=== PATIENT | female | born 1960 | race Caucasian/White ===

== ENCOUNTER 2022-12-29 09:39 | Outpatient (CLI) | payer BC, SELFPAY ==
--- NOTE | ~2022-12-29 | MM_ITS ---
EXAMINATION: MM screening blanca BI w yuli HISTORY: Screening mammogram TECHNIQUE: Craniocaudal and mediolateral oblique 3-D tomosynthesis images were obtained and synthetic 2-D images were generated. CAD analysis was submitted and interpreted. COMPARISON: No prior mammogram is available for comparison at this institution. BREAST PARENCHYMAL COMPOSITION: The breasts are heterogeneously dense, which may obscure small masses . FINDINGS: There is no evidence of suspicious mass, calcification, or architectural distortion to sugg est malignancy in either breast. There has been no suspicious interval change. IMPRESSION: 1. No mammographic evidence of malignancy. 2. Recommend routine screening mammography in one year. BI-RADS Category 1: Negative Reviewed, dictated and finalized at location A. [facility] REG[facility]
== END 2022-12-29 09:40 | disposition home or self-care (01) ==
DX: Z12.31 Encounter for screening mammogram for malignant neoplasm of breast (principal)
CPT/HCPCS: 77063; 77067

== ENCOUNTER 2023-01-01 12:42 | Outpatient (CLI) | payer BC, SELFPAY ==
--- NOTE | ~2023-01-01 | DEXA_ITS ---
Bone Density Report Name: SHARI ALMEIDA Age: 62 Sex: Female Ethnicity: White Date of : 1960 Indication: postmenopausal; screening for osteoporosis; height loss; Referring Provider: ALVAREZ BRADFORD Study: Bone densitometry was performed. Exam Date: January 01, 2023 Accession number: [id number] Bone Density: Region BMD T-score Z-score Classification AP Spine(L1, L2, L3) 0.839 -1.6 0.1 Osteopenia Femoral Neck (Left) 0.711 -1.2 0.2 Osteopenia Total Hip (Left) 0.786 -1.3 -0.1 Osteopenia Femoral Neck (Right) 0.675 -1.6 -0.1 Osteopenia Total Hip (Right) 0.786 -1.3 -0.1 Osteopenia Total Hip Mean 0.786 -1.3 -0.1 Osteopenia World Health Organization criteria for BMD impression classify patients as: Normal (T-score at or above -1.0), Osteopenia (T-score between -1.0 and -2.5), or Osteoporosis (T-score at or below -2.5). 10-year Fracture Risk: FRAX not reported because: Treated for osteoporosis Clinical Information Provided by Patient: Is being treated for osteoporosis Has used the following medications: Prolia (i.e. denosumab), Vitamin D, Calcium Patient maximum height was 64 Menopause Age: 38 Does not regularly consume dairy products Drinks caffeinated beverages Onset of menses at age 8 Number of children 2 Impression: The patient has low bone mass, based on the Total Spine T-score. Discussion: It is important to ask patients whether they are taking their medications and to encourage continued and appropriate compliance with their osteoporosis therapies to reduce fracture risk. It is also important to review their risk factors and encourage appropriate calcium and vitamin D intakes, exercise, fall prevention and other lifestyle measures. Follow-Up: Consider a repeat BMD and Vertebral Fracture Assessment (VFA) exam in 2 years or sooner if medically necessary, to reassess this patient's status. Reported by: JAMES on 01/01/2023 1:16:00 PM. Reviewed, dictated and finalized at location ASunil HUGHES
== END 2023-01-01 12:43 | disposition home or self-care (01) ==
LOC: ANHIMG 12:52
PROVIDERS: PCP Internal Medicine; Visit Provider Internal Medicine
DX: Z78.0 Asymptomatic menopausal state (principal); M85.88 Other specified disorders of bone density and structure, other site; M85.852 Other specified disorders of bone density and structure, left thigh; M85.851 Other specified disorders of bone density and structure, right thigh
CPT/HCPCS: 77080

== ENCOUNTER 2024-01-17 08:06 | Outpatient (CLI) | payer MEDICARE, SELFPAY ==
--- NOTE | ~2024-01-17 | MM_ITS ---
EXAMINATION: MM screening blanca BI w yuli HISTORY: Screening mammogram TECHNIQUE: Craniocaudal and mediolateral oblique 3-D tomosynthesis images were obtained and synthetic 2-D images were generated. CAD analysis was submitted and interpreted. COMPARISON: December 29, 2022 bilateral screening mammogram BREAST PARENCHYMAL COMPOSITION: The breasts are heterogeneously dense, which may obscure small masses . FINDINGS: There is no evidence of suspicious mass, calcification, or architectural distortion to sugg est malignancy in either breast. There has been no suspicious interval change. IMPRESSION: 1. No mammographic evidence of malignancy. 2. Recommend routine screening mammography in one year. BI-RADS Category 1: Negative Reviewed, dictated and finalized at location A.
== END 2024-01-17 08:07 | disposition home or self-care (01) ==
LOC: ANHIMG 08:10
DX: Z12.31 Encounter for screening mammogram for malignant neoplasm of breast (principal)
CPT/HCPCS: 77063; 77067

== ENCOUNTER 2025-01-23 09:44 | Outpatient (CLI) | payer MEDICARE, SELFPAY ==
--- NOTE | ~2025-01-23 | MM_ITS ---
EXAMINATION: MM screening blanca BI w yuli HISTORY: Screening TECHNIQUE: Craniocaudal and mediolateral oblique 3-D tomosynthesis images were obtained and synthetic 2-D images were generated. CAD analysis was submitted and interpreted. COMPARISON: Comparison to multiple prior studies sequentially, with oldest reviewed study dated 12/29. BREAST PARENCHYMAL COMPOSITION: Not dense: There are scattered areas of fibroglandular density. FINDINGS: There is no evidence of suspicious mass, calcification, or architectural distortion to sugg est malignancy in either breast. There has been no suspicious interval change. IMPRESSION: 1. No mammographic evidence of malignancy. 2. Recommend routine screening mammography in one year. BI-RADS Category 1: Negative Reviewed, dictated and finalized at location B.
--- OUTSIDE RECORDS SUMMARY | 2025-01-23 10:50 | XMS_ITS | Clinical Summary ---
Author Organization [facility] Address [address] [place] [address] Care Team Providers Care Dyehouse Worker Name Role Phone Dalton Page MD Primary Care Provider [phone] Mayte Lentz APRN-VOCATIONAL ED INSTRUCTOR Unavailable Unavailable Source Comments [facility],non-owned Affiliates and Associated Physician Practices is amultiple site organization consisting of ambulatory clinics and hospital sitesin [place], [place], [place] and [place]. This disclosure is being madepursuant to the Care Everywhere program and may not contain all information available regarding this patient. Last updated 18.[facility] Allergies No known active allergies Medications * Be aware that medications may not be up to date on this document. Alwaysverify current medications with the patient. Medication Sig Dispensed Refills Start Date End Date Status multivitamin daily (THERAGRAN) tablet Take 1 (one) tablet by mouth daily with food Active ALPRAZolam (XANAX) 0.25 MG tablet Take 1 (one) tablet by mouth once daily as needed for Anxiety Active sertraline (ZOLOFT) 25 MG tablet Take 1 (one) tablet by mouth once daily 04/23/2021 Active Calcium Carbonate-Vit D-Min (CALCIUM 1200 PO) Active pravastatin (Pravachol) 20 MG tablet Take 1 (one) tablet by mouth 08/17/2022 Active cyanocobalamin (Vitamin B-12) 1000 MCG tablet Take 1 (one) tablet by mouth once daily 12/10/2022 Active vitamin D, ergocalciferol, (Drisdol) 1.25 MG (51595 UT) capsule Take 1 (one) capsule by mouth every 14 days 01/13/2024 Active Active Problems Problem Noted Date Diagnosed Date Breast lump on right side at 4 o'clock position 09/17/2021 Age related osteoporosis 11/06/2019 Menopause 03/28/2015 Immunizations Name Administration Dates Next Due Comirnaty Covd-19 Mrna Vaccine (Nucleoside Modif ied) 08/24/2023 INFLUENZA VACCINE 07/15/2020 INFLUENZA VACCINE, ADJUVANTE D, QUADR. (FLUAD QUADRIVALENT; 65Y+) (AIIV4) 08/24/2023 INFLUENZA VACCINE, QUADR. (A FLURIA, FLUZONE QUADRIVALENT; 6MO+) (IIV4) 08/09/2019 INFLUENZA VACCINE, QUADR. (F LUZONE; FLULAVAL; FLUARIX; AFLURIA QUADRIVALENT; 6MO+), 0.5 ML (IIV4) 08/03/2021,07/21/2020 MODERNA SARS-COV-2 COVID-19 VACCINE 0.25ML 01/28,12/31/2020 PNEUMOCOCCAL PCV20 CONJ VAC IM 09/10/2023 RSV AREXVY 60YR+ 0.5ML 09/10/2023 TD (AGE 7-ADULT) 10/22/2005 ZOSTER VACCINE, LIVE 05/02/2018 Family History Medical History Relation Name Comments Dementia Father Dementia Mother Cancer - Breast Neg Hx Cancer - Ovarian Neg Hx Relation Name Status Comments Father Alive Mother Alive Social History Tobacco Use Types Packs/Day Years Used Date Smoking Tobacco: Never Smokeless Tobacco: Never Tobacco Cessation:Counseling Given: Not Answered Alcohol Use Standard Drinks/Week Comments No 0 (1 standard drink = 0.6 oz pur e alcohol) AUDIT-C Answer Date Recorded Q1: How often do you have a drink containing alcohol? Never 09/28/2024 Q2: How many drinks containi ng alcohol do you have on a typical day when you are drinking? Patient does not drink Q3: How often do you have si x or more drinks on one occasion? Never 09/28/2024 PHQ-2 Answer Date Recorded Patient Health Questionnaire-2 Score 0 08/07/2024 Sex and Gender Information Value Date Recorded Sex Assigned at Not on file Gender Identity Not on file Sexual Orientation Not on file Last Filed Vital Signs Vital Sign Reading Time Taken Comments Blood Pressure 121/74 09/28/2024 9:25 AM HAND SCRAPER Pulse 63 09/28/2024 9:25 AM HAND SCRAPER Temperature 36.9 C (98.4 F) 09/28/2024 9:05 AM HAND SCRAPER Respiratory Rate 12 09/28/2024 9:25 AM HAND SCRAPER Oxygen Saturation 100% 09/28/2024 9:25 AM HAND SCRAPER Inhaled Oxygen Concentration - - Weight 48 kg (105 lb 13.1 oz) 09/28/2024 7:36 AM HAND SCRAPER Height 162.6 cm (5' 4 ) 09/28/2024 7:36 AM HAND SCRAPER Body Mass Index 18.16 09/28/2024 7:36 AM HAND SCRAPER Plan of Treatment Upcoming Encounters Date Type Department Care Team (Late st Contact Info) Description 02/05/2025 1:00 PM CDT Appointment [facility] [address] [place] [address] Dalton Page MD [address] [address] Health Maintenance Due Date Last Done Comments COLOGUARD (AGES 45-75) - COLON CA SCREENING 1960 CT COLONOGRAPHY - COLON CA SCREENING 1960 FIT - COLON CA SCREENING 1960 FLEX SIG - COLON CA SCREENING 1960 MEDICARE AWV 12 MONTHS 1960 DTAP/TDAP/TD VACCINES (2 - Td or Tdap) 10/22/2015 10/22/2005 ZOSTER VACCINE (2 of 3) 06/27/2018 05/02/2018 COVID-19 VACCINE (4 - season) 2024 08/24/2023, 01/28/2021, 12/31/2020 INFLUENZA VACCINE (#1) 2024 , 08/03/2021, 07/21/2020, Additional history exists DEPRESSION SCREENING 11/08/2024 08/07/2024, 12/22/2022, 11/25/2021 MAMMOGRAM 01/16/2026 01/17/2024, 02/2 11/2022, 09/22/2021, Additional history exists COLON MONITORING 09/28/2034 09/28/2024, 06/2019, 12/15/2013 COLONOSCOPY - COLON CA SCREENING 09/28/2034 09/28/2024, 12/16/2018, 12/15/2013 Colorectal Cancer Screening 09/28/2034 HEPATITIS C SCREENING Addressed 03/12/2014 (Other - see comments) Overridden with the intention of not completing the topic BONE DENSITY TESTING Completed 10/04/2019, 02/08/2017, 01/25/2015 PNEUMOCOCCAL VACCINE 50+ Completed 09/10/2023 Respiratory Syncytial Virus (RSV) Vaccine Pt: or over 60 yrs Completed 09/10/2023 HEPATITIS B VACCINE Aged Out No longe r eligible based on patient's age to complete this topic HIB VACCINE Aged Out No longer eligi ble based on patient's age to complete this topic HPV VACCINE Aged Out No longer eligi ble based on patient's age to complete this topic MENINGOCOCCAL (Group B) VACCINE SHARED DECISION-MAKING Aged Out No longer eligible based on patient's age to complete this topic MENINGOCOCCAL GROUPS A/C/Y/W VACCINE Aged Out No longer eligible based on patient's age to complete this topic Procedures Procedure Name Priority Date/Time Associated Diagnosis Comments MAMMOGRAM 01/17/2024 DEXA BONE DENSITY AXIAL SKELETON Routine 10/04/2019 4:59 PM HAND SCRAPER Postmenopausal ENDOSCOPY, COLON, SCREENING Routine 12/15/2013 6:29 AM HAND SCRAPER from Last 3 Months or Most Recently Relevant to Health Maintenance Results * MAMMOGRAM (01/17/2024) Anatomical Region Laterality Modality Other 01/17/2024 Narrative 01/17/2024 Ordered by an unspecified provider. Scanned Document SCANNING ONLY * US DEXA BONE DENSITY STUDY [id number] (10/04/2019 4:59 PM HAND SCRAPER) Anatomical Region Laterality Modality Radiographic Edilia ging 10/04/2019 5:05 PM HAND SCRAPER Narrative 10/04/2019 5:07 PM HAND SCRAPER STUDY: DEXA BONE DENSITY AXIAL SKELETON 10/04/2019 5:00 PM COMPARISON: DEXA scan 01/25/2015 HISTORY: Asymptomatic menopausal state FINDINGS: The BMD measured at the L1-L4 level is 0.94 g/sq cm with a T score of -2. The patient is considered osteopenic according to the World Health Organization criteria. Bone density is between 10 and 25% below young normal. Fracture risk is moderate. Treatment is advised. Based on these results, a follow-up exam is recommended in September 2021. Procedure Note Sarbjit Padilla DO - 10/04/2019 STUDY: DEXA BONE DENSITY AXIAL SKELETON 10/04/2019 5:00 PM COMPARISON: DEXA scan 01/25/2015 HISTORY: Asymptomatic menopausal state FINDINGS: The BMD measured at the L1-L4 level is 0.94 g/sq cm with a T score of -2. The patient is considered osteopenic according to the World Health Organization criteria. Bone density is between 10 and 25% below young normal. Fracture risk is moderate. Treatment is advised. Based on these results, a follow-up exam is recommended in September 2021. Dalton Page MD DEXA ORDERABLES from Last 3 Months or Most Recently Relevant to Health Maintenance Care Teams Dyehouse Worker Relationship Specialty Start Date End Date Dalton Page MD [address] [facility] [address] [place], [place] [id number] PCP - General Family Medicine 02/28/13 Mayte Lentz APRN-VOCATIONAL ED INSTRUCTOR [address] [facility] [address] [place] [address] Nurse Practitioner 02/28/13
== END 2025-01-23 09:45 | disposition home or self-care (01) ==
LOC: ANHIMG 09:50
DX: Z12.31 Encounter for screening mammogram for malignant neoplasm of breast (principal)
CPT/HCPCS: 77063; 77067

== ENCOUNTER 2025-02-27 08:09 | Outpatient (CLI) | payer MEDICARE, SELFPAY ==
--- NOTE | ~2025-02-27 | DEXA_ITS ---
Bone Density Report Name: SHARI ALMEIDA Age: 64 Sex: Female Ethnicity: White Date of : 1960 Indication: osteopenia; monitoring treatment; height loss; Referring Provider: UNKNOWN, UNKNOWN Study: Bone densitometry was performed. Exam Date: February 27, 2025 Accession number: [id number] Bone Density: Region BMD T-score Z-score Classification AP Spine(L1, L2, L3) 0.898 -1.1 0.7 Osteopenia Femoral Neck (Left) 0.732 -1.1 0.5 Osteopenia Total Hip (Left) 0.851 -0.7 0.6 Normal Femoral Neck (Right) 0.815 -0.3 1.3 Normal Total Hip (Right) 0.872 -0.6 0.7 Normal Total Hip Mean 0.861 -0.7 0.7 Normal World Health Organization criteria for BMD impression classify patients as: Normal (T-score at or above -1.0), Osteopenia (T-score between -1.0 and -2.5), or Osteoporosis (T-score at or below -2.5). 10-year Fracture Risk: FRAX not reported because: Treated for osteoporosis Previous Exams: Region Exam Age BMD T-score BMD Change BMD Change Date g/cm2 vs Baseline vs Previous AP Spine (L1-L3) 02/27/2025 64 0.898 -1.1 0.059 (7.0%)* 0.059 (7.0%)* 01/01/2023 62 0.839 -1.6 Total Hip(Left) 02/27/2025 64 0.851 -0.7 0.065 (8.2%)* 0.065 (8.2%)* 01/01/2023 62 0.786 -1.3 Total Hip(Right) 02/27/2025 64 0.872 -0.6 0.086 (11.0%)* 0.086 (11.0%)* 01/01/2023 62 0.786 -1.3 *Denotes significance at 95% confidence level, LSC for AP Spine = 0.022 g/cm2, LSC for Total Hip = 0.027 g/cm2 Clinical Information Provided by Patient: Is being treated for osteoporosis Has used the following medications: Prolia (i.e. denosumab), Vitamin D, Calcium Patient maximum height was 64 Menopause Age: 38 Does not regularly consume dairy products Drinks caffeinated beverages Onset of menses at age 8 Number of children 2 Impression: The patient has low bone mass, based on the Total Spine T-score. No significant bone loss was observed. Discussion: PATIENT UNDER TREATMENT WITH NO SIGNIFICANT BMD LOSS SINCE LAST EXAM. In an untreated patient, BMD typically declines with age. A lack of decline or gain is usually a sign that treatment is efficacious and fracture risk is reduced. It is important to ask patients whether they are taking their medications and to encourage continued and appropriate compliance with their osteoporosis therapies to reduce fracture risk. It is also important to review their risk factors and encourage appropriate calcium and vitamin D intakes, exercise, fall prevention and other lifestyle measures. Follow-Up: Consider a repeat BMD and Vertebral Fracture Assessment (VFA) exam in 2 years or sooner if medically necessary, to reassess this patient's status. Reported by: JOSEPH on 02/27/2025 8:42:00 AM. Reviewed, dictated and finalized at location A. [facility]
--- OUTSIDE RECORDS SUMMARY | 2025-02-27 08:19 | XMS_ITS | Clinical Summary ---
Author Organization [facility] Address [address] [place] [address] Care Team Providers Care Travel Service Consultant Name Role Phone Dalton Page MD Primary Care Provider [phone] Mayte Lentz APRN-SIDER MECHANIC Unavailable Unavailable Source Comments [facility],non-owned Affiliates and Associated Physician Practices is amultiple site organization consisting of ambulatory clinics and hospital sitesin [place], [place], [place] and [place]. This disclosure is being madepursuant to the Care Everywhere program and may not contain all information available regarding this patient. Last updated 18.[facility] Allergies No known active allergies Medications * Be aware that medications may not be up to date on this document. Alwaysverify current medications with the patient. multivitamin daily (THERAGRAN) tablet Take 1 (one) [...] Active vitamin D, ergocalciferol, (Drisdol) 1.25 MG (15638 UT) capsule Take 1 (one) capsule by mouth every 14 days 01/13/2024 Active Active Problems Problem Noted Date Diagnosed Date Breast lump on right side at 4 o'clock position 09/17/2021 Age related osteoporosis 11/06/2019 Menopause 03/28/2015 Encounters Date Type Department Care Team Description 02/05/2025 12:29 PM CDT - 02/05/2025 11:59 PM CDT Hospital Encounter [facility] [address] [place] [phone] Dalton Page MD Discharge Disposition: Home or Self Care from Last 3 Months Immunizations Immunization Administration Dates Next Due Comirnaty Covd-19 Mrna [...] Date Recorded Patient Health Questionnaire-2 Score 0 02/05/2025 Comments No Sex and Gender Information Value Date Recorded Sex Assigned at Not on file Legal Sex Female 11:45 AM FILLING STATION EQUIPMENT MECHANIC Gender Identity Not on file Sexual Orientation Not on file Last Filed Vital Signs Vital Sign Reading Time Taken Comments Blood Pressure 146/85 02/05/2025 12:38 PM CDT Pulse 71 02/05/2025 12:38 PM CDT Temperature 36.7 C (98 F) 02/05/2025 12:38 PM CDT Respiratory Rate 18 02/05/2025 12:38 PM CDT Oxygen Saturation 98% 02/05/2025 12:38 PM CDT Inhaled Oxygen Concentration - - Weight 48 kg (105 lb 13.1 oz) 09/28/2024 7:36 AM FILLING STATION EQUIPMENT MECHANIC Height 162.6 cm (5' 4 ) 09/28/2024 7:36 AM FILLING STATION EQUIPMENT MECHANIC Body Mass Index 18.16 09/28/2024 7:36 AM FILLING STATION EQUIPMENT MECHANIC Plan of Treatment Upcoming Encounters Date Type Department Care Team (Late st Contact Info) Description 08/08/2025 1:00 PM CDT Appointment [facility] [address] [place] [address] Dalton Page MD [address] [address] Health Maintenance Due Date Last Done Comments COLOGUARD (AGES 45-75) - COLON CA SCREENING 1960 CT COLONOGRAPHY - COLON CA SCREENING 1960 FIT - COLON CA SCREENING 1960 FLEX SIG - COLON CA SCREENING 1960 MEDICARE AWV 12 MONTHS 1960 DTAP/TDAP/TD VACCINES (2 - Td or Tdap) 10/22/2015 10/22/2005 ZOSTER VACCINE (2 of 3) 06/27/2018 05/02/2018 COVID-19 VACCINE ( - season) 2024 08/24/2023, 01/28/2021, 12/31/2020 INFLUENZA VACCINE (Season Ended) 2025 08/24/2023, 08/03/2021, 07/21/2020, Additional history exists MAMMOGRAM 01/16/2026 01/17/2024, 12/10, 09/22/2021, Additional history exists COLON MONITORING 09/28/2034 [...] Pt: or over 60 yrs Completed 09/10/2023 DEPRESSION SCREENING Completed 02/05/2025, 08/07/2024, 12/22/2022, Additional history exists HEPATITIS B VACCINE Aged Out No longe [...] DENSITY AXIAL SKELETON Routine 10/04/2019 4:59 PM FILLING STATION EQUIPMENT MECHANIC Postmenopausal ENDOSCOPY, COLON, SCREENING Routine 12/15/2013 6:29 AM FILLING STATION EQUIPMENT MECHANIC from Last 3 Months or Most Recently Relevant to Health Maintenance Results * MAMMOGRAM (01/17/2024) Anatomical Region Laterality Modality Other 01/17/2024 Narrative 01/17/2024 Ordered by an unspecified provider. us Scanned Document SCANNING ONLY Final Result * US DEXA BONE DENSITY STUDY [id number] (10/04/2019 4:59 PM FILLING STATION EQUIPMENT MECHANIC) Anatomical Region Laterality Modality Radiographic Edilia ging 10/04/2019 5:05 PM FILLING STATION EQUIPMENT MECHANIC Narrative 10/04/2019 5:07 PM FILLING STATION EQUIPMENT MECHANIC STUDY: DEXA BONE DENSITY AXIAL SKELETON 10/04/2019 [...] recommended in September 2021. Procedure Note Sarbjit Padilla, DO - 10/04/2019 STUDY: DEXA BONE DENSITY [...] September 2021. Dalton Page MD DEXA ORDERABLES Final Resul t from Last 3 Months or Most Recently Relevant to Health Maintenance Insurance MEDICARE MEDICARE SUPPLEMENT PAYOR GENERIC ANTHEM Care Teams Travel Service Consultant Relationship Specialty Start Date End Date Dalton Page MD [address] [phone] PCP - General Family Medicine 02/28/13 Mayte Lentz APRN-SIDER MECHANIC [address] [address] Nurse Practitioner 02/28/13
== END 2025-02-27 08:10 | disposition home or self-care (01) ==
DX: M85.89 Other specified disorders of bone density and structure, multiple sites (principal); M81.0 Age-related osteoporosis without current pathological fracture
CPT/HCPCS: 77080

== ENCOUNTER 2025-05-22 20:47 | Inpatient (IN) | payer MEDICARE, SELFPAY ==
[2025-05-22] VITALS (15 sets, daily range): BP systolic 126–182; BP diastolic 77–106; PULSE 73–86; RESP 11–31; TEMP 36.4; O2SAT 80–100
--- NOTE | ~2025-05-22 | CT_ITS ---
EXAMINATION: CT abdomen pelvis w con DATE: 05/22/2025 22:14 INDICATION: Right lower quadrant abdominal pain and nausea TECHNIQUE: Computed tomography (CT) of the abdomen and pelvis was performed with 100 mL Omnipaque-350 intravenous contrast. Automated exposure control and iterative reconstruction technique were employe d. The dose-length product was 213.97 mGy-cm. COMPARISON: None FINDINGS: Lung bases are clear. Heart size normal. No pericardial or pleural effusion. 7 mm avidly enhancing li kiran flash filling hemangioma at the dome of the liver. 2.5 cm cyst in the left hepatic lobe. Mild fo taylor hepatic steatosis along the ligamentum teres. Calcified gallstone at the dependent fundus of the otherwise normal-appearing gallbladder. Spleen, pancreas, bilateral adrenal glands and left kidney ar e normal. 9 mm cyst at the upper pole the right kidney. Bladder is normal. Bowels including the appen irineo are normal. There is an intramuscular hematoma within the right rectus abdominis muscle measuring approximately 10 x 7 x 2.5 cm with central small serpiginous regions of active contrast extravasatio n. No free intraperitoneal gas or fluid. No pathologically enlarged abdominal or pelvic lymphadenopat hy. Densely sclerotic likely bone island at the L2 vertebral body. IMPRESSION: 1. Right rectus abdominis intramuscular hematoma with active contrast extravasation. 2. Cholelithiasis. Reviewed, dictated and finalized at location A. IMPRESSION: 1. Right rectus abdominis intramuscular hematoma with active contrast extravasa tion. 2. Cholelithiasis.
--- OUTSIDE RECORDS SUMMARY | 2025-05-22 20:49 | XMS_ITS | Clinical Summary ---
Author Organization [facility] [employer] Address [address] [place] [address] Care Team Providers Care Buggy Operator Name Role Phone Dalton Page MD Primary Care Provider [phone] Mayte Lentz APRN-WIRE WRAPPER MACHINE OPERATOR Unavailable Unavailable Source Comments [facility] [employer],non-owned Affiliates and Associated Physician Practices is amultiple site organization consisting of ambulatory clinics and hospital sitesin [place], [place], [place] and [place]. This disclosure is being madepursuant to the Care Everywhere program and may not contain all information available regarding this patient. Last updated 18.[facility] [employer] Allergies No known active allergies Medications * [...] Active vitamin D, ergocalciferol, (Drisdol) 1.25 MG (12198 UT) capsule Take 1 (one) capsule by mouth every 14 days 01/13/2024 Active Active Problems Problem Noted Date Diagnosed Date Breast lump on right side at 4 o'clock position 09/17/2021 Age related osteoporosis 11/06/2019 Menopause 03/28/2015 Immunizations Immunization Administration Dates Next Due Santi Covd-19 Mrna Vaccine (Nucleoside Modif ied) 08/24/2023 [...] on file Legal Sex Female 11:45 AM FIELD COORDINATOR Gender Identity Not on file Sexual Orientation [...] (105 lb 13.1 oz) 09/28/2024 7:36 AM FIELD COORDINATOR Height 162.6 cm (5' 4) 09/28/2024 7:36 AM FIELD COORDINATOR Body Mass Index 18.16 09/28/2024 7:36 AM FIELD COORDINATOR Plan of Treatment Upcoming Encounters Date Type Department Care Team (Late st Contact Info) Description 08/08/2025 1:00 PM CDT Appointment [facility] [address] [place] [address] Dalton Page MD [address] [address] Health Maintenance Due Date Last [...] 2024 08/24/2023, 01/28/2021, 12/31/2020 INFLUENZA VACCINE (#1) 2025 , 08/03/2021, 07/21/2020, Additional history exists MAMMOGRAM 01/16/2026 01/17/2024, 02/11/2022, 09/22/2021, Additional history exists PAP with HPV 01/13/2028 01/12/2023, 12/0 11/2019, 05/21/2017 COLON MONITORING 09/28/2034 09/28/2024, 06/2019, 12/15/2013 COLONOSCOPY [...] Priority Date/Time Associated Diagnosis Comments MAMMOGRAM 01/17/2024 PAP IG LB +HPV APTIMA REFLEX 16,18/45 Routine 01/12/2023 8:30 AM FIELD COORDINATOR Well woman exam with routine gynecological exam Menopause Post-menopausal atrophic vaginitis DEXA BONE DENSITY AXIAL SKELETON Routine 10/04/2019 4:59 PM FIELD COORDINATOR Postmenopausal ENDOSCOPY, COLON, SCREENING Routine 12/15/2013 6:29 AM FIELD COORDINATOR from Last 3 Months or Most Recently Relevant to Health Maintenance Results * MAMMOGRAM (01/17/2024) Anatomical Region Laterality Modality Other 01/17/2024 Narrative 01/17/2024 Ordered by an unspecified provider. us Scanned Document SCANNING ONLY Final Result * PAP IG LB +HPV APTIMA REFLEX 16,18/45 (01/12/2023 8:30 AM FIELD COORDINATOR) Diagnosis [facility] INSURANCE BILL Comment: NEGATIVE FOR INTRAEPITHELIAL LESION OR MALIGNANCY. CELLULAR CHANGES ASSOCIATED WITH ATROPHY ARE PRESENT. Specimen Adequacy [facility] INSURANCE BILL Comment: Satisfactory for evaluation. Endocervical and/or squamous metaplastic cells (endocervical component) are present. Clinician Provided ICD10 [facility] INSURANCE BILL Comment: Z01.419 Z78.0 N95.2 Performed by [facility] INSURANCE BILL Comment:Lorenza Watts, Cyto technologist (ASCP) Comment . [facility] INSURANCE BILL Note [facility] INSURANCE BILL Comment: The Pap smear is a screening test designed to aid in the detection of premalignant and malignant conditions of the uterine cervix. It is not a diagnostic procedure and should not be used as the sole means of detecting cervical cancer. Both false-positive and false-negative reports do occur. . [facility]GLBP CPT Code Automation NOT AVAILABLE [facility] INSURANCE BILL Comment: The Thin Prep(R) Financial Sales Representative was unable to read this specimen. Therefore a manual review was performed. Result cannot be obtained for this observation. Human papillomavirus Aptima Negative Negative [facility] INSURANCE BILL Comment: This nucleic acid amplification test detects fourteen high-risk HPV types (16,18,31,33,35,39,45,51,52,56,58,59,66,68) without differentiation. HPV Genotype Reflexed [facility] INSURANCE BILL Comment:Criteria not met, HP V Genotype not performed. PART OF UTERINE CERVIX / Unknown 01/12/2023 8:30 AM FIELD COORDINATOR 01/13/2023 Narrative [facility] INSURANCE BILL - 01/18/2023 10:08 AM CDT Other..............Post Menopausal No. of containers..01 ThinPrep Vial Resulting Agency Comment Lab Testing performed at: [employer] [id number] [place] Mayte Lentz INSTITUTION LIBRARIAN-WIRE WRAPPER MACHINE OPERATOR LAB - PATHOLOGY/CYTOLOGY ORD ERABLES Final Result [facility] INSURANCE BILL [address] [place] [address] * DEXA BONE DENSITY STUDY 66609 (10/04/2019 4:59 PM FIELD COORDINATOR) Anatomical Region Laterality Modality Radiographic Edilia ging 10/04/2019 5:05 PM FIELD COORDINATOR Narrative 10/04/2019 5:07 PM FIELD COORDINATOR STUDY: DEXA BONE DENSITY AXIAL SKELETON 10/04/2019 [...] MEDICARE SUPPLEMENT PAYOR GENERIC ANTHEM Care Teams Buggy Operator Relationship Specialty Start Date End Date Dalton Page MD [address] [phone] PCP - General Family Medicine 02/28/13 Mayte Lentz APRN-WIRE WRAPPER MACHINE OPERATOR [address] [address] Nurse Practitioner 02/28/13
--- NOTE | 2025-05-22 21:05 | ED_ITS ---
HPI - Abdominal Pain General Chief Complaint: Abdominal Pain Stated Complaint: abd pain Time Seen by Provider: 05/22/25 20:56 History of Present Illness HPI narrative: 64-year-old otherwise healthy female presenting to the emergency department for 10 hours of right lower quadrant for pain worsening gradually. States that she had some light pain earlier this morning around 11:00 a.m. that she knows that got gradually worse and worse throughout the evening and now she is very uncomfortable and has nausea without vomiting. No urinary complaints, no back pain, diarrhea, constipation. No chest pain or difficulty in breathing. No abdominal surgical history, no previous pain similar to this. Was otherwise in her normal state of health. Pain is reproducible palpation as well as movement of the right lower extremity with hip flexion and internal rotation causing worsening symptoms. Related Data Allergies Allergy/AdvReac Type Severity Reaction Status Date / Time No Known Allergies Allergy Verified 05/22/25 20:48 Review of Systems 2 Review of Systems: As reviewed above in HPI Exam 2 Narrative: GENERAL: [Well-appearing, well-nourished, and in no acute distress.] HEAD: [Normocephalic, atraumatic.] EYES: [PERRLA and EOMI.] ENT: Nares clear, no rhinorrhea or epistaxis. Mucous membranes moist. NECK: Supple. CHEST: [Clear to auscultation. No respiratory distress.] HEART: [Regular rate and rhythm]. No murmur heard. [Normal peripheral pulses.] ABDOMEN: [Soft, nondistended], tenderness to palpation the right lower quadrant no palpable masses, [No rigidity or guarding] positive obturator sign. Negative Butt sign, no CVA tenderness, no overlying skin changes, no distension EXTREMITIES: Normal range of motion. [No edema.] SKIN: Warm, dry, no rash. NEURO: [No focal deficits]. Alert and oriented [x3.] PSYCH: [Normal mood and affect.] Course Vital Signs Vital signs: Vital Signs Temperature 36.4 C 05/22/25 20:48 Pulse Rate 86 05/22/25 20:48 Respiratory Rate 16 05/22/25 20:48 Blood Pressure 182/102 H 05/22/25 20:48 Pulse Oximetry 100 05/22/25 20:48 Temperature 36.4 C 05/22/25 20:48 Pulse Rate 73 05/23/25 04:15 Respiratory Rate 12 07/16/25 04:15 Blood Pressure 119/76 05/23/25 04:15 Pulse Oximetry 100 05/23/25 01:30 Oxygen Delivery Nasal Cannula 05/22/25 22:50 Oxygen Flow Rate 2 05/22/25 22:50 MDM - Abdominal Pain MDM Narrative Medical decision making narrative: 64-year-old otherwise healthy female presenting to the emergency department for 10 hours of right lower quadrant for pain worsening gradually. States that she had some light pain earlier this morning around 11:00 a.m. that she knows that got gradually worse and worse throughout the evening and now she is very uncomfortable and has nausea without vomiting. No urinary complaints, no back pain, diarrhea, constipation. No chest pain or difficulty in breathing. No abdominal surgical history, no previous pain similar to this. Was otherwise in her normal state of health. Pain is reproducible palpation as well as movement of the right lower extremity with hip flexion and internal rotation causing worsening symptoms. Patient's exam does have reproducible pain with palpation of the right lower quadrant focally that is worse with internal rotation of the hip and positive obturators sign. Hypertension with no history of hypertension likely secondary to pain as she is very uncomfortable appearing. No CVA tenderness or urinary complaints, no GI symptoms other than some mild nausea likely secondary to the pain. Differential includes appendicitis, ruptured appendicitis, intra- abdominal abscess, ureteral stone, urinary tract infection, pyelonephritis, less likely right upper quadrant pathology such as biliary system involvement. CT scan with contrast was obtained of the abdomen pelvis, she was given Dilaudid and Zofran as well as a fluid bolus, laboratory studies and urinalysis ordered. Patient's laboratory studies showed no leukocytosis or significant anemia. Normal platelet count. Coagulation panel is normal, electrolytes unremarkable, normal creatinine, normal glucose, normal LFTs. Urinalysis without infection. CT scan shows a right rectus abdominis muscular hematoma with active contrast extravasation as well as some cholelithiasis. The hematoma measures 10 x 7 x 2.5 cm. I independently reviewed the images to confirm the location and is in the site of patient's pain. Patient re-examined and required additional pain medications but doing well otherwise and remains hemodynamically stable. I discussed the CT findings with General surgery on-call Dr. Castillo and given that she is hemodynamically stable with normal vital signs this will likely tamponade on its own and surgery will be on consult after admission to the hospitalist service with recommendations to workup for coagulopathy and trend hemoglobin. No acute interventions needed at this time. Patient re-evaluated and doing well after additional pain medications. I discussed the case with the hospitalist service who agreed to accept the patient to a telemetry monitored bed and consult were placed as well as as needed medications and serial H&H. Medical Records Attestation: I reviewed the patient's medical records. Lab Data Attestation: I reviewed the patient's lab results. 05/22/25 22:47 05/22/25 21:30 Labs: Lab Results 05/22/25 05/22/25 Range/Units 21:30 22:47 WBC 6.5 (4.5-10.0) K/mm3 RBC 3.99 L (4.2-5.4) M/mm3 Hgb 12.0 11.5 L (12.0-15.0) g/dL Hct 36.6 L 35.1 L (37.0-47.0) % MCV 91.7 (80-100) fl MCH 30.1 (26-34) pg MCHC 32.8 (32-36) g/dl RDW 12.5 (11.5-14.5) % Plt Count 204 (150-375) k/mm3 MPV 9.6 (7.4-10.4) fl Immature Gran % (Auto) 0.3 (0-0.5) % Neut % (Auto) 52.3 (45.5-73.1) % Lymph % (Auto) 33.3 (18.3-44.2) % Toombs % (Auto) 10.7 H (2.6-8.5) % Eos % (Auto) 3.1 (0-4.4) % Baso % (Auto) 0.3 (0.2-1.2) % Lymph # (Auto) 2.18 (0.9-3.2) K/mm3 Toombs # (Auto) 0.7 H (0.1-0.6) K/mm3 Eos # (Auto) 0.2 (0-0.3) K/mm3 Baso # (Auto) 0.0 (0.0-0.1) K/mm3 Abs Immat Gran (auto) 0.02 (0.00-0.031) K/mm3 Absolute Neuts (auto) 3.4 (1.3-6.7) K/mm3 Absolute Nucleated RBC 0.000 (0.0-0.012) K/mm3 Nucleated RBC % 0.0 (0.0-0.2) % PT 13.8 (11.1-14.7) Seconds INR 1.0 APTT 28.5 (22.3-36.8) Seconds Sodium 137 (137-145) mmol/L Potassium 4.5 (3.4-5.0) mmol/L Chloride 103 (98-107) mmol/L Carbon Dioxide 27 (22-30) mmol/L Anion Gap 7 (4-12) mmol/L BUN 8 (7-17) mg/dL Creatinine 0.55 L (0.7-1.0) mg/dL Estim Creat Clear Calc 69 ml/min Estimated GFR > 60 (59 - ) Glucose 100 (65-110) mg/dL Calcium 9.6 (8.4-10.2) mg/dL Magnesium 2.5 H (1.6-2.3) mg/dL Total Bilirubin 0.5 (0.2-1.3) mg/dL AST 42 H (14-36) U/L ALT 29 (6-35) U/L Alkaline Phosphatase 62 (38-126) U/L Total Protein 7.1 (6.3-8.2) g/dL Albumin 4.5 (3.5-5.1) g/dL Blood Type O Positive Antibody Screen Negative Imaging Data Attestation: I personally reviewed and interpreted this imaging study as follows: My impression: Impressions Abdomen/Pelvis CT 05/22/25 22:17 IMPRESSION: 1. Right rectus abdominis intramuscular hematoma with active contrast extravasation. 2. Cholelithiasis. Radiologist's impression: ITS Impressions Abdomen/Pelvis CT 05/22/25 22:17 IMPRESSION: 1. Right rectus abdominis intramuscular hematoma with active contrast extravasation. 2. Cholelithiasis. Discharge Plan Discharge Clinical Impression: Nontraumatic rectus hematoma, Abdominal wall pain Patient Disposition: Still a Patient Condition: Stable
--- OUTSIDE RECORDS SUMMARY | 2025-05-22 21:12 | XMS_ITS | Clinical Summary ---
Author Organization [facility] [employer] Address [address] [place] [address] Care Team Providers Care Nurse Practitioner Per Diem Name Role Phone Dalton Page MD Primary Care Provider [phone]- [phone] Mayte Lentz APRN-MACHINE TECHNICIAN Unavailable Unavailable Source Comments [facility],non-owned Affiliates and Associated Physician Practices is amultiple site organization consisting of ambulatory clinics and hospital sitesin [place], [place] and [place]. This disclosure is being madepursuant to the Care Everywhere program and may not contain all information available regarding this patient. Last updated 18.[facility] Allergies No known active allergies Medications * [...] Active vitamin D, ergocalciferol, (Drisdol) 1.25 MG (57729 UT) capsule Take 1 (one) capsule by [...] on file Legal Sex Female 11:45 AM TEMPERATURE REGULATOR PYROMETER Gender Identity Not on file Sexual Orientation [...] (105 lb 13.1 oz) 09/28/2024 7:36 AM TEMPERATURE REGULATOR PYROMETER Height 162.6 cm (5' 4) 09/28/2024 7:36 AM TEMPERATURE REGULATOR PYROMETER Body Mass Index 18.16 09/28/2024 7:36 AM TEMPERATURE REGULATOR PYROMETER Plan of Treatment Upcoming Encounters Date Type Department Care Team (Late st Contact Info) Description 08/08/2025 1:00 PM CDT Appointment [facility] [address] [place] [address] Dalton Page MD [address] [address] Health Maintenance Due Date Last [...] APTIMA REFLEX 16,18/45 Routine 01/12/2023 8:30 AM TEMPERATURE REGULATOR PYROMETER Well woman exam with routine gynecological exam Menopause Post-menopausal atrophic vaginitis DEXA BONE DENSITY AXIAL SKELETON Routine 10/04/2019 4:59 PM TEMPERATURE REGULATOR PYROMETER Postmenopausal ENDOSCOPY, COLON, SCREENING Routine 12/15/2013 6:29 AM TEMPERATURE REGULATOR PYROMETER from Last 3 Months or Most Recently Relevant to Health Maintenance Results * MAMMOGRAM (01/17/2024) Anatomical Region Laterality Modality Other 01/17/2024 Narrative 01/17/2024 Ordered by an unspecified provider. us Scanned Document SCANNING ONLY Final Result * PAP IG LB +HPV APTIMA REFLEX 16,18/45 (01/12/2023 8:30 AM TEMPERATURE REGULATOR PYROMETER) Diagnosis [facility] INSURANCE BILL Comment: NEGATIVE FOR INTRAEPITHELIAL LESION OR MALIGNANCY. CELLULAR CHANGES ASSOCIATED WITH ATROPHY ARE PRESENT. Specimen Adequacy [facility] INSURANCE BILL Comment: Satisfactory for evaluation. Endocervical and/or squamous metaplastic cells (endocervical component) are present. Clinician Provided ICD10 [facility] INSURANCE BILL Comment: Z01.419 Z78.0 N95.2 Performed by [facility] INSURANCE BILL Comment:Lorenza Watts, Cyto technologist (ASCP) Comment . [facility] INSURANCE BILL Note [facility] INSURANCE BILL Comment: The Pap smear is a screening test designed to aid in the detection of premalignant and malignant conditions of the uterine cervix. It is not a diagnostic procedure and should not be used as the sole means of detecting cervical cancer. Both false-positive and false-negative reports do occur. . IGLBP CPT Code Automation NOT AVAILABLE [facility] INSURANCE BILL Comment: The Thin Prep(R) Net Mender was unable to read this specimen. Therefore a manual review was performed. Result cannot be obtained for this observation. Human papillomavirus Aptima Negative Negative [facility] INSURANCE BILL Comment: This nucleic acid amplification test detects fourteen high-risk HPV types (16,18,31,33,35,39,45,51,52,56,58,59,66,68) without differentiation. HPV Genotype Reflexed [facility] INSURANCE BILL Comment:Criteria not met, HP V Genotype not performed. PART OF UTERINE CERVIX / Unknown 01/12/2023 8:30 AM TEMPERATURE REGULATOR PYROMETER 01/13/2023 Narrative [facility] INSURANCE BILL - 01/18/2023 10:08 AM CDT Other..............Post Menopausal No. of containers..01 ThinPrep Vial Resulting Agency Comment Lab Testing performed at: [employer] [id number] [place] Mayte Lentz WICK AND BASE ASSEMBLER-MACHINE TECHNICIAN LAB - PATHOLOGY/CYTOLOGY ORD ERABLES Final Result [facility] INSURANCE BILL [address] [place] [address] * DEXA BONE DENSITY STUDY 17506 (10/04/2019 4:59 PM TEMPERATURE REGULATOR PYROMETER) Anatomical Region Laterality Modality Radiographic Edilia ging 10/04/2019 5:05 PM TEMPERATURE REGULATOR PYROMETER Narrative 10/04/2019 5:07 PM TEMPERATURE REGULATOR PYROMETER STUDY: DEXA BONE DENSITY AXIAL SKELETON 10/04/2019 [...] MEDICARE SUPPLEMENT PAYOR GENERIC ANTHEM Care Teams Nurse Practitioner Per Diem Relationship Specialty Start Date End Date Dalton Page MD [address] [phone] PCP - General Family Medicine 02/28/13 Mayte Lentz APRN-MACHINE TECHNICIAN [address] [address] Nurse Practitioner 02/28/13
[2025-05-22] MEDS: HYDROmorphone HCL INJ (*CRX) 2 MG/ML VIAL 0.5 MG IV PUSH ×2 (21:22→22:38)
[2025-05-22] MEDS: ONDANSETRON INJ 4 MG/2 ML VIAL IV PUSH (21:24)
[2025-05-22] MEDS: LACTATED RINGERS 1,000 ML 999 ML IV CONT (21:25)
[2025-05-22 21:36] LABS: Hematocrit 36.6 % (37.0-47.0); Hemoglobin 12.0 g/dL (12.0-15.0); Immature Granulocyte Percent A 0.3 % (0-0.5); Lymphocytes Absolute Auto 2.18 K/mm3 (0.9-3.2); Mean Corpuscular HGB Conc 32.8 g/dl (32-36); Mean Corpuscular Hemoglobin 30.1 pg (26-34); Mean Corpuscular Volume 91.7 fl (80-100); Nucleated Red Blood Cells Absolute Auto 0.000 K/mm3 (0.0-0.012); Nucleated Red Blood Cells Perc 0.0 % (0.0-0.2); Platelet Count Result 204 k/mm3 (150-375); Red Blood Count 3.99 M/mm3 (4.2-5.4); White Blood Count 6.5 K/mm3 (4.5-10.0)
[2025-05-22 21:48] LABS: Alanine Aminotransferase 29 U/L (6-35); Albumin Level 4.5 g/dL (3.5-5.1); Alkaline Phosphatase 62 U/L (38-126); Anion Gap 7 mmol/L (4-12); Aspartate Amino Transferase 42 U/L (14-36); Bilirubin,Total 0.5 mg/dL (0.2-1.3); Blood Urea Nitrogen 8 mg/dL (7-17); Calcium 9.6 mg/dL (8.4-10.2); Carbon Dioxide 27 mmol/L (22-30); Chloride 103 mmol/L (98-107); Estimated CRCL calculation 69 ml/min; Estimated Glomerular Filt Rate > 60; Glucose 100 mg/dL (65-110); Magnesium 2.5 mg/dL (1.6-2.3); Potassium 4.5 mmol/L (3.4-5.0); Sodium 137 mmol/L (137-145); Total Protein 7.1 g/dL (6.3-8.2)
[2025-05-22 22:53] LABS: Hematocrit 35.1 % (37.0-47.0); Hemoglobin 11.5 g/dL (12.0-15.0)
--- NOTE | 2025-05-22 22:53 | PC.NURSE ---
Pt placed on 2L NC after receiving Dilaudid and sats 80% on RA while sleeping. Pt sats increased to 96% on 2L. Pt's hearing aids taken out of bilateral ears, placed in a urine cup and given to pt's at bedside.
[2025-05-22 23:09] LABS: INR 1.0; Prothrombin Time 13.8 Seconds (11.1-14.7)
[2025-05-22 23:10] LABS: Partial Thromboplastin Time 28.5 Seconds (22.3-36.8)
[2025-05-23] VITALS (37 sets, daily range): BP systolic 100–148; BP diastolic 67–88; PULSE 72–86; RESP 4–26; TEMP 37.2; O2SAT 97–100; BMI 19.3
[2025-05-23] MEDS: LACTATED RINGERS 1,000 ML 100 ML IV CONT (00:13)
[2025-05-23 02:19] LABS: Add Urine Microscopic? NO; Appearance Urine Clear (Clear); Glucose Urine UA Negative (Negative); Leukocyte Esterase Ur Negative LEU/UL (Negative); Nitrate Urine Negative (Negative); Specific Grav Ur 1.042 (1.001-1.035)
--- NOTE | 2025-05-23 04:16 | P.HP_ITS ---
H&P: HPI History of Present Illness Date/Time: 05/23/25 04:16 Chief Complaint: Right lower abdominal pain Narrative: 64-year-old female with no known past medical history otherwise healthy presents with her to [facility] ER on 05/22/2025 with a complaint of 10 hours of right lower quadrant pain which has gradually worsened. She can also feel a bulge. There has been some associated nausea vomiting but none upon arrival. Patient denies diarrhea, chest pain, shortness of breath. Denies any trauma, any new workout regimen, history of hernia. Initially her blood pressure was elevated, improving after pain medication. She received Dilaudid 0.5 mg IV x2. Received 1 L lactated Ringer's and Zofran x1. Hemoglobin on arrival 12 and 11.5. No baseline to compare to. Urinalysis lar jayme unremarkable. CT abdomen and pelvis with contrast demonstrating right rectus abdominis intramuscular hematoma with active contrast extravasation. Cholelithiasis. General surgery consulted from ER. Advised they will consult. After ER course patient resting comfortably. Review of Systems Review of Systems: All systems reviewed & are unremarkable except as noted in HPI and below (subjective) Meds Home Medications and Allergies Allergies Allergy/AdvReac Type Severity Reaction Status Date / Time No Known Allergies Allergy Verified 05/22/25 20:48 Vital Signs Vital Signs - 24 hr 05/22/25 20:48 05/22/25 20:57 05/22/25 21:00 Temperature 97.6 F Pulse Rate 86 78 77 Respiratory Rate 16 20 13 Blood Pressure 182/102 H 171/106 H 174/102 H Pulse Oximetry 100 100 100 Oxygen Delivery Oxygen Flow Rate 05/22/25 21:16 05/22/25 21:31 05/22/25 21:45 Temperature Pulse Rate 86 78 73 Respiratory Rate 25 H 31 H 16 Blood Pressure 150/93 H 131/82 157/87 H Pulse Oximetry 100 100 Oxygen Delivery Oxygen Flow Rate 05/22/25 22:00 05/22/25 22:19 05/22/25 22:31 Temperature Pulse Rate 74 80 86 Respiratory Rate 20 13 19 Blood Pressure 159/93 H 159/89 H 145/100 H Pulse Oximetry 100 100 100 Oxygen Delivery Oxygen Flow Rate 05/22/25 22:48 05/22/25 22:50 05/22/25 22:52 Temperature Pulse Rate 79 Respiratory Rate 12 Blood Pressure 140/87 Pulse Oximetry 80 L 96 100 Oxygen Delivery Room Air Nasal Cannula Oxygen Flow Rate 2 05/22/25 23:00 05/22/25 23:15 05/22/25 23:30 Temperature Pulse Rate 82 84 79 Respiratory Rate 14 16 11 L Blood Pressure 145/83 H 144/83 H 126/77 Pulse Oximetry 99 100 100 Oxygen Delivery Oxygen Flow Rate 05/23/25 00:30 05/23/25 00:45 05/23/25 01:00 Temperature Pulse Rate 75 77 75 Respiratory Rate 11 L 12 12 Blood Pressure 127/68 125/73 128/79 Pulse Oximetry 100 100 100 Oxygen Delivery Oxygen Flow Rate Exam Const: General: comfortable and no acute distress Other: A&O x3 HENMT: Mouth: Yes moist mucous membranes Eyes: Pupils: Equal, round and reactive pupils present Neck: Neck: supple Resp: Effort & Inspection: normal respiratory effort Auscultation: clear to auscultation bilaterally Cardio: Rate: regular rate Rhythm: regular rhythm Heart sounds: no gallops, no murmurs and no rubs GI: Inspection: non-distended GI Palp: Yes Soft to palpation Other: Mild tenderness to deep palpation of the right lower quadrant nonfluctuant, firm swelling : General: Yes bladder normal to palpation Neuro: Motor exam (neuro): 5/5 motor strength present throughout Extrem: General: no edema H&P: Results Labs Labs: Short CBC 05/22/25 05/22/25 Range/Units 21:30 22:47 WBC 6.5 (4.5-10.0) K/mm3 Hgb 12.0 11.5 L (12.0-15.0) g/dL Hct 36.6 L 35.1 L (37.0-47.0) % Plt Count 204 (150-375) k/mm3 BMP 05/22/25 21:30 Sodium 137 Potassium 4.5 Chloride 103 Carbon Dioxide 27 BUN 8 Creatinine 0.55 L Glucose 100 Calcium 9.6 Liver Function 05/22/25 Range/Units 21:30 Total Bilirubin 0.5 (0.2-1.3) mg/dL AST 42 H (14-36) U/L ALT 29 (6-35) U/L Alkaline Phosphatase 62 (38-126) U/L Albumin 4.5 (3.5-5.1) g/dL Urine 05/23/25 Range/Units 02:11 Urine Color Yellow (Yellow) Urine Appearance Clear (Clear) Urine pH 8.5 (5.0-9.0) Ur Specific [place] 1.042 H (1.001-1.035) Urine Protein Negative (Negative) mg/dL Urine Glucose (UA) Negative (Negative) mg/dL Assessment and Plan Assessment and plan (1) Hematoma: Code(s): T14.8XXA - Other injury of unspecified body region, initial encounter Status: Acute Plan 64-year-old female with no known past medical history otherwise healthy presents with her to [facility] ER on 05/22/2025 with a complaint of 10 hours of right lower quadrant pain which has gradually worsened. She can also feel a bulge. There has been some associated nausea vomiting but none upon arrival. Patient denies diarrhea, chest pain, shortness of breath. Denies any trauma, any new workout regimen, history of hernia. Initially her blood pressure was elevated, improving after pain medication. She received Dilaudid 0.5 mg IV x2. Received 1 L lactated Ringer's and Zofran x1. Hemoglobin on arrival 12 and 11.5. No baseline to compare to. Urinalysis largely unremarkable. CT abdomen and pelvis with contrast demonstrating right rectus abdominis intramuscular hematoma with active contrast extravasation. Cholelithiasis. General surgery consulted from ER. Advised they will consult. After ER course patient resting comfortably. ----- Monitor hemoglobin. Monitor serial abdominal exams. Pending surgical consultation. Ice pack. Full code. Lactated Ringer's at 100 cc/hour. Saline lock IV. Tylenol, [place], Dilaudid p.r.n. Hospitalist [facility] [place] Advance Care Plan I have confirmed that the patient's Advanced Care Plan is present, code status is documented, or surrogate decision maker is listed in patient medical record.: Yes Medication Reconciliation I have utilized all available resources to obtain, update and review the patients current medications (includes all prescriptions, OTC, herbals, cannabis, and nutritional supplements).: Yes
[2025-05-23 05:26] LABS: Hematocrit 32.9 % (37.0-47.0); Hemoglobin 10.9 g/dL (12.0-15.0)
[2025-05-23] MEDS: HYDROmorphone HCL INJ (*CRX) 2 MG/ML VIAL 0.5 MG IV PUSH (05:31)
[2025-05-23] MEDS: ONDANSETRON INJ 4 MG/2 ML VIAL IV PUSH (05:31)
--- NOTE | 2025-05-23 08:11 | ADMGEN ---
This patient, Liza Gómez, was admitted to [facility] Surg Room 323-01. Patient/family oriented to hospital policies and general routines including ID bracelet, bed and alarms, visiting hours, pain management, procedures, bathroom and other care routines, personal items, smoking policy, room service/diet, and visiting hours. Information on how to activate the Rapid Response Team has been discussed. Patient/Family are encouraged to report perceived risks to care and to ask questions if they do not understand what they are told or what they should do.
--- NOTE | 2025-05-23 08:31 | ADMGEN ---
This patient, Liza Gómez, was admitted to [facility] Surg Room 323-01. Patient/family oriented to hospital policies and general routines including ID bracelet, bed and alarms, visiting hours, pain management, procedures, bathroom and other care routines, personal items, smoking policy, room service/diet, and visiting hours. Information on how to activate the Rapid Response Team has been discussed. Patient/Family are encouraged to report perceived risks to care and to ask questions if they do not understand what they are told or what they should do.
--- NOTE | 2025-05-23 09:29 | PM.CNGS ---
Assessment and Plan Assessment and plan (1) Nontraumatic rectus hematoma: Code(s): M79.81 - Nontraumatic hematoma of soft tissue Status: Acute Assessment and Plan: Patient presented yesterday evening with right lower quadrant pain that started in the morning as soreness and continued to increase in severity throughout the day. She noticed a firmness and hardening in this area. Upon admission to the ED she developed some nausea and vomiting. Labs revealed slightly decreased hemoglobin and hematocrit at 10.9 and 32.9 respectively. Normal platelet count and coagulation studies. CT of the abdomen and pelvis revealed right rectus abdominus intramuscular hematoma with active contrast extravasation. Patient has no history of any bleeding disorders. No recent trauma to the area or recent abdominal surgeries. Will speak with hospitalist regarding coagulation workup versus hematology consult. No immediate surgical intervention necessary at this time. Continue Dilaudid for pain and Zofran for nausea. Plan Discussed patient's case and plan of care with Dr. Castillo. History of Present Illness Consult details Consult date: 05/23/25 Narrative: Patient is a 64-year-old female with no significant past medical history who we have been asked to see in surgical consultation for rectus muscle hematoma. Patient states that she 1st started experiencing some right lower quadrant soreness around 11:00 a.m. yesterday. She states that she began to notice the area became more firm and hardened and the pain continued to increase in severity. Later in the evening the pain had become excruciating, which eventually led to her presenting to the ED. Upon admission, labs revealed a hemoglobin of 10.9 and hematocrit of 32.9. Normal coagulation studies. CT of the abdomen and pelvis revealed right rectus abdominus intramuscular hematoma with active contrast extravasation. Also demonstrated cholelithiasis. Patient does not recall any direct trauma to the area. She does admit to a ground level fall last week when she was outside wearing flip-flops when she slipped backwards and hit her head. She states that this did not cause any pain to her right lower quadrant. No previous abdominal surgeries. No changes in bowel or bladder habits. No hematemesis or hematochezia. She has had some nausea and vomiting throughout the night into the morning. Patient has never been diagnosed with bleeding disorder. She does admit to sometimes having easy bruising. Patient's only daily medications are rosuvastatin and sertraline. Patient is now receiving Dilaudid for pain and Zofran for nausea. Patient feels as though the area is less swollen, firm and tender than yesterday. [facility] Social History Social History Smoking status: Never smoker Alcohol intake: current Drinks per week: 2 Substance use: current Substance use type: does not use Do You Feel Safe in your Home?: Yes Lack of Transportation: No Lack of Food: Never True Current Housing: I Have Housing Concerned About Future Housing: No Difficulty Paying Gas/Electric Bills: No Difficulty Paying for Meds: No Currently Unemployed: No Education: High School Diploma/GED Difficulty w/ Childcare or Family Care: No Spiritual care concerns: No Meds Home Medications and Allergies Home Medications ?Medication ?Instructions ?Recorded ?Confirmed ?Type rosuvastatin 10 mg tablet 10 mg PO HS 05/23/25 05/23/25 History sertraline 25 mg tablet 25 mg PO Q24H 05/23/25 05/23/25 History Allergies Allergy/AdvReac Type Severity Reaction Status Date / Time No Known Allergies Allergy Verified 05/23/25 08:33 Vital Signs Vital Signs - 24 hr 05/22/25 20:48 05/22/25 20:57 05/22/25 21:00 Temperature 97.6 F Pulse Rate 86 78 77 Respiratory Rate 16 20 13 Blood Pressure 182/102 H 171/106 H 174/102 H Pulse Oximetry 100 100 100 Oxygen Delivery Oxygen Flow Rate 05/22/25 21:16 05/22/25 21:31 05/22/25 21:45 Temperature Pulse Rate 86 78 73 Respiratory Rate 25 H 31 H 16 Blood Pressure 150/93 H 131/82 157/87 H Pulse Oximetry 100 100 Oxygen Delivery Oxygen Flow Rate 05/22/25 22:00 05/22/25 22:19 05/22/25 22:31 Temperature Pulse Rate 74 80 86 Respiratory Rate 20 13 19 Blood Pressure 159/93 H 159/89 H 145/100 H Pulse Oximetry 100 100 100 Oxygen Delivery Oxygen Flow Rate 05/22/25 22:48 05/22/25 22:50 05/22/25 22:52 Temperature Pulse Rate 79 Respiratory Rate 12 Blood Pressure 140/87 Pulse Oximetry 80 L 96 100 Oxygen Delivery Room Air Nasal Cannula Oxygen Flow Rate 2 05/22/25 23:00 05/22/25 23:15 05/22/25 23:30 Temperature Pulse Rate 82 84 79 Respiratory Rate 14 16 11 L Blood Pressure 145/83 H 144/83 H 126/77 Pulse Oximetry 99 100 100 Oxygen Delivery Oxygen Flow Rate 05/23/25 00:30 05/23/25 00:45 05/23/25 01:00 Temperature Pulse Rate 75 77 75 Respiratory Rate 11 L 12 12 Blood Pressure 127/68 125/73 128/79 Pulse Oximetry 100 100 100 Oxygen Delivery Oxygen Flow Rate 05/23/25 01:15 05/23/25 01:30 05/23/25 01:46 Temperature Pulse Rate 79 73 86 Respiratory Rate 13 17 20 Blood Pressure 131/79 130/79 100/88 Pulse Oximetry 100 100 Oxygen Delivery Oxygen Flow Rate 05/23/25 04:05 05/23/25 04:15 05/23/25 04:30 Temperature Pulse Rate 74 73 73 Respiratory Rate 12 12 11 L Blood Pressure 119/78 119/76 115/72 Pulse Oximetry Oxygen Delivery Oxygen Flow Rate 05/23/25 04:31 05/23/25 04:45 05/23/25 04:46 Temperature Pulse Rate 73 73 73 Respiratory Rate 13 11 L 12 Blood Pressure 110/72 Pulse Oximetry Oxygen Delivery Oxygen Flow Rate 05/23/25 05:00 05/23/25 05:01 05/23/25 05:15 Temperature Pulse Rate 75 76 75 Respiratory Rate 11 L 12 11 L Blood Pressure 110/68 137/85 Pulse Oximetry Oxygen Delivery Oxygen Flow Rate 05/23/25 05:16 05/23/25 05:30 05/23/25 05:31 Temperature Pulse Rate 78 84 79 Respiratory Rate 11 L 26 H 20 Blood Pressure 148/87 H Pulse Oximetry Oxygen Delivery Oxygen Flow Rate 05/23/25 05:45 05/23/25 05:46 05/23/25 06:00 Temperature Pulse Rate 73 72 75 Respiratory Rate 12 13 14 Blood Pressure 124/75 115/71 Pulse Oximetry Oxygen Delivery Oxygen Flow Rate 05/23/25 06:01 05/23/25 06:15 05/23/25 06:16 Temperature Pulse Rate 77 76 76 Respiratory Rate 15 12 16 Blood Pressure 112/68 Pulse Oximetry Oxygen Delivery Oxygen Flow Rate 05/23/25 06:30 05/23/25 06:31 05/23/25 06:45 Temperature Pulse Rate 77 77 77 Respiratory Rate 20 15 20 Blood Pressure 108/67 116/68 Pulse Oximetry Oxygen Delivery Oxygen Flow Rate 05/23/25 06:46 05/23/25 07:00 05/23/25 07:01 Temperature Pulse Rate 73 75 75 Respiratory Rate 4 L 11 L 12 Blood Pressure 113/71 Pulse Oximetry Oxygen Delivery Oxygen Flow Rate 05/23/25 07:15 05/23/25 07:16 05/23/25 07:30 Temperature Pulse Rate 74 74 74 Respiratory Rate 11 L 12 11 L Blood Pressure 121/73 115/70 Pulse Oximetry 97 Oxygen Delivery Oxygen Flow Rate 05/23/25 07:31 Temperature Pulse Rate 75 Respiratory Rate 15 Blood Pressure Pulse Oximetry 98 Oxygen Delivery Oxygen Flow Rate Exam Const: General: comfortable and no acute distress Eyes: General: appearance normal, both eyes and all related structures Neck: Neck: supple Resp: Effort & Inspection: normal respiratory effort Cardio: Rate: regular rate GI: GI Palp: Yes Soft to palpation Other: Right lower quadrant with palpable firm bulge. Patient states that is much improved from yesterday. Tenderness to palpation of the area. Has no bruising or other skin changes year. Skin: General skin exam: normal color and no rashes or lesions noted Extrem: General: normal to inspection Psych: Mental Status: mental status grossly normal Results Labs 05/23/25 05:10 05/22/25 21:30 Labs: Abnormal lab results 05/22/25 05/22/25 05/23/25 Range/Units 21:30 22:47 02:11 RBC 3.99 L (4.2-5.4) M/mm3 Hgb 11.5 L (12.0-15.0) g/dL Hct 36.6 L 35.1 L (37.0-47.0) % [place] % (Auto) 10.7 H (2.6-8.5) % [place] # (Auto) 0.7 H (0.1-0.6) K/mm3 Creatinine 0.55 L (0.7-1.0) mg/dL Magnesium 2.5 H (1.6-2.3) mg/dL AST 42 H (14-36) U/L Ur Specific [place] 1.042 H (1.001-1.035) 05/23/25 Range/Units 05:10 RBC (4.2-5.4) M/mm3 Hgb 10.9 L (12.0-15.0) g/dL Hct 32.9 L (37.0-47.0) % [place] % (Auto) (2.6-8.5) % [place] # (Auto) (0.1-0.6) K/mm3 Creatinine (0.7-1.0) mg/dL Magnesium (1.6-2.3) mg/dL AST (14-36) U/L Ur Specific [place] (1.001-1.035) Diabetes panel 05/22/25 Range/Units 21:30 Sodium 137 (137-145) mmol/L Potassium 4.5 (3.4-5.0) mmol/L Chloride 103 (98-107) mmol/L Carbon Dioxide 27 (22-30) mmol/L BUN 8 (7-17) mg/dL Creatinine 0.55 L (0.7-1.0) mg/dL Glucose 100 (65-110) mg/dL Calcium 9.6 (8.4-10.2) mg/dL AST 42 H (14-36) U/L ALT 29 (6-35) U/L Alkaline Phosphatase 62 (38-126) U/L Total Protein 7.1 (6.3-8.2) g/dL Albumin 4.5 (3.5-5.1) g/dL Calcium panel 05/22/25 Range/Units 21:30 Calcium 9.6 (8.4-10.2) mg/dL Albumin 4.5 (3.5-5.1) g/dL Pituitary panel 05/22/25 Range/Units 21:30 Sodium 137 (137-145) mmol/L Potassium 4.5 (3.4-5.0) mmol/L Chloride 103 (98-107) mmol/L Carbon Dioxide 27 (22-30) mmol/L BUN 8 (7-17) mg/dL Creatinine 0.55 L (0.7-1.0) mg/dL Glucose 100 (65-110) mg/dL Calcium 9.6 (8.4-10.2) mg/dL Adrenal panel 05/22/25 Range/Units 21:30 Sodium 137 (137-145) mmol/L Potassium 4.5 (3.4-5.0) mmol/L Chloride 103 (98-107) mmol/L Carbon Dioxide 27 (22-30) mmol/L BUN 8 (7-17) mg/dL Creatinine 0.55 L (0.7-1.0) mg/dL Glucose 100 (65-110) mg/dL Calcium 9.6 (8.4-10.2) mg/dL Total Bilirubin 0.5 (0.2-1.3) mg/dL AST 42 H (14-36) U/L ALT 29 (6-35) U/L Alkaline Phosphatase 62 (38-126) U/L Total Protein 7.1 (6.3-8.2) g/dL Albumin 4.5 (3.5-5.1) g/dL All other labs normal. Imaging Abdomen CT scan report/results: report reviewed and image reviewed
[2025-05-23] MEDS: SERTRALINE HCL 25 MG TABLET PO (09:48)
[2025-05-23 12:00] LABS: Hematocrit 33.6 % (37.0-47.0); Hemoglobin 10.7 g/dL (12.0-15.0); Mean Corpuscular HGB Conc 31.8 g/dl (32-36); Mean Corpuscular Hemoglobin 30.1 pg (26-34); Mean Corpuscular Volume 94.4 fl (80-100); Platelet Count Result 166 k/mm3 (150-375); Red Blood Count 3.56 M/mm3 (4.2-5.4); White Blood Count 7.0 K/mm3 (4.5-10.0)
--- NOTE | 2025-05-23 16:32 | P.DS_ITS ---
DS: Admitting Diagnosis Discharge Date 05/23/25 Admitting Diagnosis Right lower abdominal pain DS: Discharge Diagnosis Discharge Diagnosis (1) Hematoma: Code(s): T14.8XXA - Other injury of unspecified body region, initial encounter Status: Acute Plan 64-year-old female with no known past medical history otherwise healthy presents with her to [facility] ER on 05/22/2025 with a complaint of 10 hours of right lower quadrant pain which has gradually worsened. She can also feel a bulge. There has been some associated nausea vomiting but none upon arrival. Patient denies diarrhea, chest pain, shortness of breath. Denies any trauma, any new workout regimen, history of hernia. Initially her blood pressure was elevated, improving after pain medication. She received Dilaudid 0.5 mg IV x2. Received 1 L lactated Ringer's and Zofran x1. Hemoglobin on arrival 12 and 11.5. No baseline to compare to. Urinalysis largely unremarkable. CT abdomen and pelvis with contrast demonstrating right rectus abdominis intramuscular hematoma with active contrast extravasation. Cho lelithiasis. General surgery consulted from ER. Advised they will consult. After ER course patient resting comfortably. ----- Monitor hemoglobin. Monitor serial abdominal exams. Pending surgical consultation. Ice pack. Full code. Lactated Ringer's at 100 cc/hour. Saline lock IV. Tylenol, [place], Dilaudid p.r.n. DS: Summary Hospital Course Hospital Course: patient stats she was cleaning her back porch and had a fall, suspect may injury from the fall. patient does not have any history of excessive bleeding or bruising, patient is clinically stable, and her present, will discharge today. Patient is instructed to avoid any trauma to abdomen, extra strenuous exercise or activities, taking easy, apply ice. patient to follow up with primary care provider as soon as possible, patient to follow up with Dr. Hebert maintenance supervisor as soon as possible, patient is instructed if any symptoms worsen, enlargement of hematoma, bleeding or bruising please go to nearest ER. Time Spent with Patient Time attestation: Total time spent providing and/or coordinating discharge services: Exam Narrative: Patient's nurse is present in the room Patient is comfortable, NAD HEENT: eyes are clear and none icteric LUNGS:CTA HEART: RR S1S2 ABD: BS+, Soft, minimal swelling, unable to auscultate any blood flow, there is no bruising, and nontender Lower extremities: no edema SKIN: nonjaundiced Neuro: grossly intact. DS: Data Data Completed and Pending Labs on day of discharge: Labs from last 24 hours 05/23/25 05/23/25 05/23/25 11:54 05:10 02:11 WBC 7.0 RBC 3.56 L Hgb 10.7 L 10.9 L Hct 33.6 L 32.9 L MCV 94.4 MCH 30.1 MCHC 31.8 L RDW 12.7 Plt Count 166 MPV 9.8 Immature Gran % (Auto) Neut % (Auto) Lymph % (Auto) [place] % (Auto) Eos % (Auto) Baso % (Auto) Lymph # (Auto) [place] # (Auto) Eos # (Auto) Baso # (Auto) Abs Immat Gran (auto) Absolute Neuts (auto) Absolute Nucleated RBC Nucleated RBC % PT INR APTT Sodium Potassium Chloride Carbon Dioxide Anion Gap BUN Creatinine Estim Creat Clear Calc Estimated GFR Glucose Calcium Magnesium Total Bilirubin AST ALT Alkaline Phosphatase Total Protein Albumin Urine Color Yellow Urine Appearance Clear Urine pH 8.5 Ur Specific [place] 1.042 H Urine Protein Negative Urine Glucose (UA) Negative Urine Ketones Negative Ur Blood (Man) Negative Urine Nitrate Negative Urine Bilirubin Negative Urine Urobilinogen 0.2 Leukocyte Esterase Rfl Negative Blood Type Antibody Screen 05/22/25 05/22/25 22:47 21:30 WBC 6.5 RBC 3.99 L Hgb 11.5 L 12.0 Hct 35.1 L 36.6 L MCV 91.7 MCH 30.1 MCHC 32.8 RDW 12.5 Plt Count 204 MPV 9.6 Immature Gran % (Auto) 0.3 Neut % (Auto) 52.3 Lymph % (Auto) 33.3 [place] % (Auto) 10.7 H Eos % (Auto) 3.1 Baso % (Auto) 0.3 Lymph # (Auto) 2.18 [place] # (Auto) 0.7 H Eos # (Auto) 0.2 Baso # (Auto) 0.0 Abs Immat Gran (auto) 0.02 Absolute Neuts (auto) 3.4 Absolute Nucleated RBC 0.000 Nucleated RBC % 0.0 PT 13.8 INR 1.0 APTT 28.5 Sodium 137 Potassium 4.5 Chloride 103 Carbon Dioxide 27 Anion Gap 7 BUN 8 Creatinine 0.55 L Estim Creat Clear Calc 69 Estimated GFR > 60 Glucose 100 Calcium 9.6 Magnesium 2.5 H Total Bilirubin 0.5 AST 42 H ALT 29 Alkaline Phosphatase 62 Total Protein 7.1 Albumin 4.5 Urine Color Urine Appearance Urine pH Ur Specific [place] Urine Protein Urine Glucose (UA) Urine Ketones Ur Blood (Man) Urine Nitrate Urine Bilirubin Urine Urobilinogen Leukocyte Esterase Rfl Blood Type O Positive Antibody Screen Negative Discharge Plan Discharge Attending physician on discharge: Bessy London Consulting providers: Benoit Castillo; Annie Trimble; Jesús Raza Discharging Clinician: Nam Infante Patient Disposition: Home Activity: as tolerated Diet: heart healthy Discharge Instructions: Patient is instructed to avoid any trauma to abdomen, extra strenuous exercise or activities, taking easy, apply ice. patient to follow up with primary care provider as soon as possible, patient to follow up with Dr. Hebert maintenance supervisor as soon as possible, patient is instructed if any symptoms worsen, enlargement of hematoma, bleeding or bruising please go to nearest ER. Patient Instructions: Antibiotic Form Patient Language: Croatian Stand Alone Forms: General Discharge Information Follow-up/Referrals: Emmanuel Hebert MD [Physician] - Kaylee,MD Sisi [Primary Care Provider] - Discharge Medications: Continued rosuvastatin 10 mg tablet 10 mg PO HS sertraline 25 mg tablet 25 mg PO Q24H Date of admission: 05/23/25 13:04 Primary Care Provider: VenuSisi Admitting Provider: Bessy London Attending physician on admission: Nam Infante Condition: Stable
== END 2025-05-23 17:36 | disposition home or self-care (01) | DRG 605 ==
LOC: ANHED 21:10 → ANH3MEDSUR 05-23 00:32
PROVIDERS: Admitting Provider General Practice; Emergency Provider Student in an Organized Health Care Education/Training Program; PCP Family Medicine; Visit Provider Family Medicine
DX: S30.1XXA Contusion of abdominal wall, initial encounter (principal); K80.20 Calculus of gallbladder without cholecystitis without obstruction; W18.30XA Fall on same level, unspecified, initial encounter
CPT/HCPCS: 36415; 74177; 80053; 81003; 83735; 85014; 85018; 85025; 85027; 85610; 85730; 86850; 86900; 86901; 96361; 96374; 96375; 96376; 99285; A9270; G0378; J1171; J2405; J7120; Q9967